=== PATIENT | female | born 1950 | race Caucasian/White ===

== ENCOUNTER 2025-07-03 11:26 | Day surgery (SDC) | payer MEDICARE, BC ==
[2025-06-29 12:54] LABS: MEAN PLATELET VOLUME 8.9 FL (7.4-10.4); RED CELL DISTRIBUTION WIDTH 13.0 % (11.5-14.5)
[2025-06-29 13:07] LABS: APTT 26 SECONDS (22-32); INR 1.0 INR
[2025-06-29 13:19] LABS: CHOL/HDL RATIO 3.2 (0.00-4.99); CREATININE 0.72 MG/DL (0.40-0.90); LDL CHOLESTEROL 107 MG/DL (50-100); TOTAL CARBON DIOXIDE 25.9 MMOL/L (24-32); eGFR 79 ML/MIN
[2025-07-03] VITALS (11 sets, daily range): BP systolic 113–137; BP diastolic 55–69; PULSE 56–60; RESP 14–22; TEMP 98.8; O2SAT 92–97
[~2025-07-03] VITALS: Ht 154.9 cm; Wt 63.7 kg
[~2025-07-03 11:26] MED LIST: ALPR0.255 PO; AMLO-379 PO; LEVO88TA7 PO; NITR0.4T48; PARO40TA4 PO; PRAV80TA75 PO; SUMA100T PO; TIMO5DRO44 RIGHTEYE
--- NOTE | 2025-07-03 12:16 | ELECTROCARDIOGRAPH REPORT ---
[facility] Test Date: 2025-07-03 Test Time: 11:42:03 Pat Name: KARL NELSON Department: PRE/OP CARDIOLOGY [id number] Room: Gender: F Room Service Clerk: : [id number] Requested By: VAN HAMMONDS Order Number: [id number] Reading MD: Dr. NIKOLAY Fernandez Measurements Intervals [place] Rate: 53 P: 37 OR: 174 QRS: 12 QRSD: 99 T: -26 QT: 418 QTc: 393 Interpretive Statements Sinus bradycardia Abnrm T, consider ischemia, anterolateral lds Electronically Signed On 07-03-2025 13:23:[address] NIKOLAY Fernandez Please click the below link to view image of tracing.
[2025-07-03] MEDS ORDERED: verapamil 2.5 mg/ml inj IV ONE (14:24)
[2025-07-03] MEDS ORDERED: midazolam 1 mg/ML 2ml injection ONE (14:24)
[2025-07-03] MEDS ORDERED: heparin 1,000unit/ml 10ml vial 10 ML ONE (14:24)
[2025-07-03] MEDS ORDERED: LIDOcaine 1% (10mg/ml) 2ml vial ONE (14:24)
[2025-07-03] MEDS ORDERED: fentaNYL/PF 50MCG/1 ML 2ML syringe ONE (14:24)
[2025-07-03] MEDS ORDERED: nitroGLYCERIN 500mcg/5mL D5W 5 ML IV ONE (14:25)
[2025-07-03] MEDS ORDERED: ondansetron/PF 4mg/2ml inj IV PRN (16:00)
[2025-07-03] MEDS ORDERED: HYDROcodone/acetaminophen 5mg/325mg tablet PO PRN (16:00)
[2025-07-03] MEDS ORDERED: OXAZEpam 15mg capsule PO PRN (16:00)
[2025-07-03] MEDS ORDERED: HYDROcodone/acetaminophen 10/325mg tab PO PRN (16:00)
[2025-07-09] MEDS ORDERED: ERGO400C PO (13:28)
[2025-07-09] MEDS ORDERED: POTA-188 PO (13:28)
[2025-07-09] MEDS ORDERED: NITR0.4T51 SL (17:40)
[2025-07-09] MEDS ORDERED: CHOL100046 PO (17:40)
[2025-07-13] MEDS ORDERED: CLOP75TA34 PO (08:22)
[2025-07-13] MEDS ORDERED: HYDR-3972 PO (08:22)
[2025-07-13] MEDS ORDERED: LOP12.5T PO (08:22)
[2025-07-13] MEDS ORDERED: ASPI81TA53 PO (08:22)
--- NOTE | 2025-07-28 09:38 | CARDIOLOGY REPORT ---
DATE OF SERVICE: 07/03/2025 DICTATING PHYSICIAN: Debbi Martinez MD CARDIAC CATHETERIZATION REPORT DATE OF STUDY: 07/03/2025 PROCEDURES: * Left heart catheterization * Selective coronary angiography. * Left ventriculography * Selective left subclavian and nonselective left internal mammary artery angiography. * Selective right subclavian and nonselective right internal mammary artery angiography. * Conscious sedation monitoring time for 30 minutes. INDICATION: Unstable angina. PHYSICIAN: Mali Martinez MD PROCEDURE: After informed consent was obtained, the patient was brought to the cardiac labor custodian in a fasting state where the patient was prepped and draped in the usual sterile manner. After adequate anesthesia was obtained using 1% lidocaine to the right wrist, a 5-[place] sheath was inserted into the right radial artery using a modified Seldinger technique. Thereafter, using a cocktail of heparin, verapamil and nitroglycerin, the cocktail was given via the sheath in the radial artery to prevent coronary vasospasm and for anticoagulation. Next, using an Ultimate-2 catheter, the catheter was advanced under fluoroscopy guidance into the ascending aorta. The catheter was then manipulated to engage the left coronary system and coronary angiography of the left system was obtained. Next, the catheter was disengaged and manipulated to engage the right coronary artery and selective coronary angiography of the right coronary artery was obtained. Thereafter, the catheter was disengaged from the right coronary artery and manipulated to advance into the left ventricle where left ventriculography in the REID position was obtained. The catheter was then removed. Hemostasis was obtained using the radial band. Following diagnostic angiography, a Fernandez 2 catheter was used and manipulated to engage the left subclavian and left subclavian and nonselective left internal mammary artery angiography was performed. The Fernandez 2 catheter was then pulled back to the right subclavian, and right subclavian and nonselective right internal mammary artery angiography was also performed. HEMODYNAMICS: For the patient's hemodynamics, please refer to the event log. There was no significant gradient across the aortic valve on catheter pullback. Left ventricular end diastolic pressure was 7 mmHg. FINDINGS: The left main coronary artery is a medium caliber vessel with 30% proximal and distal stenosis. The left anterior descending coronary artery is occluded proximally. Moderate 60-70% stenosis of the diagonal branches also noted. The circumflex coronary artery is an aberrant vessel coming off the right coronary cusp. Moderate 50-60% stenosis of the mid circumflex coronary artery is noted. The right coronary artery is a medium caliber vessel that is severely diseased throughout. The vessel is subtotaled in its mid to distal portion. Left ventriculography revealed the presence of moderate anteroapical hypokinesis. IMPRESSION: * Severe 3-vessel coronary artery disease. * Mild to moderate anteroapical hypokinesis. * Left ventricular end diastolic pressure is 7 mmHg. RECOMMENDATION: Surgical revascularization. Debbi Martinez MD TID: [id number] RECEIPT: [id number] JEANCARLOS/MILDRED
== END 2025-07-03 18:55 | disposition home or self-care (01) ==
LOC: SSTAY O 11:26
PROVIDERS: ATTEND Student in an Organized Health Care Education/Training Program
DX: R94.39 Abnormal result of other cardiovascular function study (principal); I25.110 Atherosclerotic heart disease of native coronary artery with unstable angina pectoris; E78.00 Pure hypercholesterolemia, unspecified; E03.9 Hypothyroidism, unspecified; Z79.82 Long term (current) use of aspirin; Z79.890 Hormone replacement therapy; Z79.899 Other long term (current) drug therapy; Z88.2 Allergy status to sulfonamides
CPT/HCPCS: 36415; 80048; 80061; 83695; 85025; 85610; 85730; 93005; 93458; 99152; 99153; A6258; A6402; C1894; J1644; J2003; J2250; J3010; J3490; J7030; Q0163; Q9967